=== PATIENT | female | born 1975 | race African-American/Black ===

== ENCOUNTER 2016-09-05 12:24 | Emergency (ER) | payer OTHER ==
[~2016-09-05] VITALS: Ht 157.5 cm; Wt 93.7 kg
[~2016-09-05 12:24] MED LIST: AMOXICILLIN500 MG PO; BACTRIM,SEPT1 TABLET PO; BENTYL20 MG PO; Brethine PO; CLEOCIN300 MG PO; CLINDAMYCIN HC150 MG PO; DIFLUCAN150 MG PO; Dilaudid PO; HYDROCODON-ACE1 EAC7 PO; INDOCIN25 MG PO; KEFLEX500 MG PO; LORTAB 5-325 M1 EACH PO; MOTRIN800 MG PO; Motrin PO; NAPROSYN500 MG PO; NAPROXEN500 MG PO; NOHOMEMEDS; NORCO 5/3251 TABLET PO; PERCOCET 10/1 TABLET PO; PERCOCET 5/31 TABLET PO; PERCOCET 7.51 TABLET PO; PREDNISONE20 MG PO; PREFERA-OB P1 TABLET PO; PRENATAL1 EACH PO; PROBIOTIC1 EAC1 PO; Percocet 5/325,Endoc PO; TRAMADOL HCL50 MG PO; URSO250 MG PO; VALIUM5 MG PO; ZOFRAN ODT4 MG PO
[2016-09-05 13:12] LABS: HEMATOCRIT 37.6 % (36.0-46.0); MCH 28.6 PG (29.0-34.0); MCHC 32.4 G/DL (30.0-36.0); MCV 88.1 FL (83-99); MEAN PLAT.VOLUME 10.4 uM^3 (9.5-12.4); PLATELET COUNT 204 K/uL (156-360); RBC DIS.WIDTH-CV 12.8 % (11.8-14.6); RBC DIS.WIDTH-SD 40.4 % (39-53); RED BLOOD COUNT 4.27 M/uL (3.80-5.20); WHITE BLOOD COUNT 4.9 K/uL (4.1-10.2)
[2016-09-05 13:24] LABS: ADD MIUA? YES; BILIRUBIN NEGATIVE; BLOOD NEGATIVE; COLOR YELLOW ((YELLOW)); GLUCOSE (STRIP) NEGATIVE; KETONES NEGATIVE; LEUKOCYTES NEGATIVE; NITRITE NEGATIVE; PROTEIN (STRIP) NEGATIVE
[2016-09-05 13:26] LABS: CHLORIDE 107 mEq/L (99-109); SODIUM 138 mEq/L (136-147)
[2016-09-05 13:27] LABS: GLUCOSE 110 mg/dL (70-99)
[2016-09-05 13:29] LABS: ANION GAP 6 MEQ/L (2-14)
[2016-09-05 13:30] LABS: BACTERIA RARE /HPF; EPITHELIAL CELLS 1+ /HPF; MUCUS TRACE /LPF; RED BLOOD CELLS 0-5 /HPF (0-5); UCUL ADDED? NO; WHITE BLOOD CELLS 0-5 /HPF (0-5)
[2016-09-05 13:31] LABS: GFR ESTIMATE (CALCULATED) > 59 mL/min/
[2016-09-05 13:32] LABS: UREA NITROGEN (BUN) 6 mg/dL (9-23)
[2016-09-05 14:17] LABS: TOTAL BILIRUBIN 0.5 mg/dL (0.0-1.0)
[2016-09-05 14:18] LABS: ALKALINE PHOSPHATASE 102 IU/L (3-129)
[2016-09-05 14:20] LABS: DIRECT BILIRUBIN 0.2 mg/dL (0.0-0.3)
[2016-09-05 14:26] LABS: QUANTITATIVE HCG < 4.0 MIU/ML
[2016-09-05] MEDS ORDERED: FLEXERIL10 MG PO (16:21)
[2016-09-05] MEDS ORDERED: MOBIC7.5 MG PO (16:21)
[2016-09-05 16:38] VITALS: BP 167/89
== END 2016-09-05 16:48 | disposition home or self-care (01) ==
LOC: EME 12:24
DX: R10.9 Unspecified abdominal pain (principal); R79.89 Other specified abnormal findings of blood chemistry; J45.909 Unspecified asthma, uncomplicated; Z87.442 Personal history of urinary calculi; Z91.018 Allergy to other foods; Z88.6 Allergy status to analgesic agent; Z88.5 Allergy status to narcotic agent; F17.200 Nicotine dependence, unspecified, uncomplicated
CPT/HCPCS: 74176; 80048; 80076; 81003; 84702; 85027; 99281; 99284; J1885

== ENCOUNTER 2016-09-09 21:23 | Emergency (ER) | payer OTHER ==
[~2016-09-09] VITALS: Ht 157.5 cm; Wt 91.9 kg
[~2016-09-09 21:23] MED LIST changes: +FLEXERIL10 MG PO; +MOBIC7.5 MG PO
[2016-09-09 21:43] LABS: HEMATOCRIT 37.4 % (36.0-46.0); MCH 28.7 PG (29.0-34.0); MCHC 32.9 G/DL (30.0-36.0); MCV 87.4 FL (83-99); MEAN PLAT.VOLUME 10.2 uM^3 (9.5-12.4); PLATELET COUNT 238 K/uL (156-360); RBC DIS.WIDTH-CV 13.3 % (11.8-14.6); RED BLOOD COUNT 4.28 M/uL (3.80-5.20); WHITE BLOOD COUNT 5.7 K/uL (4.1-10.2)
[2016-09-09 21:56] LABS: CHLORIDE 108 mEq/L (99-109); POTASSIUM 3.8 mEq/L (3.7-5.4); SODIUM 139 mEq/L (136-147)
[2016-09-09 21:58] LABS: GLUCOSE 130 mg/dL (70-99)
[2016-09-09 21:59] LABS: ANION GAP 8 MEQ/L (2-14)
[2016-09-09 22:02] LABS: ALKALINE PHOSPHATASE 95 IU/L (3-129); GFR ESTIMATE (CALCULATED) > 59 mL/min/
[2016-09-09 22:03] LABS: UREA NITROGEN (BUN) 12 mg/dL (9-23)
[2016-09-09 22:05] LABS: LIPASE 68 U/L (1.0-51.0)
[2016-09-09 22:12] LABS: QUANTITATIVE HCG < 4.0 MIU/ML
[2016-09-09 22:13] LABS: TOTAL BILIRUBIN 0.7 mg/dL (0.0-1.0)
[2016-09-09 22:22] LABS: AMYLASE 54 IU/L (1-118)
[2016-09-09 22:23] LABS: ADD MIUA? YES; BILIRUBIN NEGATIVE; BLOOD NEGATIVE; COLOR YELLOW ((YELLOW)); GLUCOSE (STRIP) NEGATIVE; KETONES 5; LEUKOCYTES TRACE; NITRITE NEGATIVE; PROTEIN (STRIP) 30; SPECIFIC GRAVITY 1.032 (1.000-1.030)
[2016-09-09 22:35] LABS: BACTERIA 3+ /HPF; EPITHELIAL CELLS 2+ /HPF; MUCUS 1+ /LPF; RED BLOOD CELLS NONE SEEN /HPF (0-5); UCUL ADDED? NO; WHITE BLOOD CELLS 0-5 /HPF (0-5)
[2016-09-10] MEDS ORDERED: CIPRO500 MG PO (00:38)
[2016-09-10] MEDS ORDERED: SKELAXIN800 MG PO (00:38)
[2016-09-10] MEDS ORDERED: ZOFRAN4 MG PO (00:38)
[2016-09-10 00:54] VITALS: BP 145/102
== END 2016-09-10 00:54 | disposition home or self-care (01) ==
LOC: EME 21:23
DX: N10 Acute pyelonephritis (principal); G89.29 Other chronic pain; M54.9 Dorsalgia, unspecified
CPT/HCPCS: 76700; 80053; 81003; 82150; 83690; 84702; 85027; 87086; 99281; 99284; G0480; J3010

== ENCOUNTER 2016-10-01 19:32 | Emergency (ER) | payer OTHER ==
[~2016-10-01] VITALS: Ht 154.9 cm; Wt 92.7 kg
[~2016-10-01 19:32] MED LIST changes: +CIPRO500 MG PO; +SKELAXIN800 MG PO; +ZOFRAN4 MG PO
[2016-10-01] MEDS ORDERED: NORCO 5/3251 TABLET PO (19:54)
[2016-10-01] MEDS ORDERED: PEN-VEE K,VEET500 MG PO (19:54)
[2016-10-01 20:32] VITALS: BP 131/90
== END 2016-10-01 20:33 | disposition home or self-care (01) ==
LOC: EME 19:32
DX: K08.89 Other specified disorders of teeth and supporting structures (principal); F17.200 Nicotine dependence, unspecified, uncomplicated
CPT/HCPCS: 99281; 99284

== ENCOUNTER 2016-10-08 19:20 | Emergency (ER) | payer OTHER ==
[~2016-10-08] VITALS: Ht 157.5 cm; Wt 94.7 kg
[~2016-10-08 19:20] MED LIST changes: +PEN-VEE K,VEET500 MG PO
[2016-10-08] MEDS ORDERED: TRAMADOL HCL50 MG PO (20:16)
[2016-10-08] MEDS ORDERED: PEN-VEE K,VEET500 MG PO (20:16)
[2016-10-08 21:01] VITALS: BP 131/88
== END 2016-10-08 21:02 | disposition home or self-care (01) ==
LOC: EME 19:20
DX: K02.9 Dental caries, unspecified (principal)
CPT/HCPCS: 99281; 99284

== ENCOUNTER 2017-12-04 13:29 | Day surgery (SDC) | payer OTHER ==
[~2017-12-04] VITALS: Ht 154.9 cm; Wt 91.2 kg
[2017-12-04] MEDS ORDERED: PERCOCET 10/1 TABLET PO (13:45)
[2017-12-04] MEDS ORDERED: GABAPENTIN400 MG PO (13:51)
[2017-12-04] MEDS ORDERED: ZOFRAN4 MG PO (13:52)
== END 2017-12-04 15:30 | disposition home or self-care (01) ==
LOC: PAIN 13:29 → SDC 14:15 → PAIN 15:30
DX: M54.16 Radiculopathy, lumbar region (principal); M51.26 Other intervertebral disc displacement, lumbar region; M47.816 Spondylosis without myelopathy or radiculopathy, lumbar region; G89.29 Other chronic pain; F17.200 Nicotine dependence, unspecified, uncomplicated
CPT/HCPCS: J1100; J3010

== ENCOUNTER 2018-01-01 10:08 | Day surgery (SDC) | payer OTHER ==
[~2018-01-01] VITALS: Ht 154.9 cm; Wt 90.7 kg
[~2018-01-01 10:08] MED LIST changes: +GABAPENTIN400 MG PO
== END 2018-01-01 11:45 | disposition home or self-care (01) ==
LOC: PAIN 10:08 → SDC 11:00 → PAIN 11:45
DX: M47.816 Spondylosis without myelopathy or radiculopathy, lumbar region (principal); M54.16 Radiculopathy, lumbar region; G89.29 Other chronic pain; M25.551 Pain in right hip; F17.200 Nicotine dependence, unspecified, uncomplicated; Z79.891 Long term (current) use of opiate analgesic; F41.9 Anxiety disorder, unspecified
CPT/HCPCS: J1100